=== PATIENT | female | born 1950 | race Caucasian/White ===

== ENCOUNTER 2018-02-22 10:19 | Outpatient (CLI) | payer OTHER ==
--- NOTE | 2018-02-22 11:57 | MAMMO ---
EXAM: Bilateral digital screening mammogram (2-D and 3-D) History: Screening Comparison: Bilateral mammogram 05/02/2016 Findings: MLO and CC views of bilateral breasts demonstrate scattered fibroglandular breast parenchy ma. CAD was reviewed by the radiologist. Tomosynthesis was performed. Stable benign bilateral brandon st calcifications. There are no dominant masses, no suspicious microcalcifications and no architectu ral distortions Impression: Benign stable mammogram. Recommend followup routine screening mammography in 1 year. BIRADS 2
== END 2018-02-22 10:20 | disposition home or self-care (01) ==
LOC: RAD 10:19
PROVIDERS: ATTEND Family Medicine
DX: Z12.31 Encounter for screening mammogram for malignant neoplasm of breast (principal)
CPT/HCPCS: 77067

== ENCOUNTER 2018-10-12 08:10 | Outpatient (CLI) | payer OTHER ==
--- NOTE | 2018-10-12 09:10 | US ---
EXAM: Renal ultrasound HISTORY: Renal insufficiency COMPARISON: None TECHNIQUE: Renal ultrasound was perform FINDINGS: Right kidney measures 4.0 x 4.3 x 10.0 cm. Left kidney measures 5.3 x 5.1 x 11.3 cm. Lonny al cortical echogenicity is normal. No hydronephrosis or renal calculus large enough to cause acoust ic shadowing. Bladder only mildly distended and poorly evaluated. Visualized liver is echogenic. IMPRESSION: 1. Sonographically normal kidneys. 2. Hepatic steatosis.
== END 2018-10-12 08:11 | disposition home or self-care (01) ==
LOC: RAD 08:10
PROVIDERS: ATTEND Family Medicine
DX: N28.9 Disorder of kidney and ureter, unspecified (principal)